=== PATIENT | female | born 1960 | race Caucasian/White ===

== ENCOUNTER → 2016-12-07 | Outpatient (CLI) | payer OTHER, BC ==
[2016-12-07 12:53] LABS: BASO % 0.3 %; BASO ABS # 0.03 K/uL (0-0.2); COMPLETE YES; EOS % 0.6 %; HEMATOCRIT 37.5 % (37-47); IG% 0.1 %; LYMPH % 19.5 %; MEAN CELL VOLUME 86.8 fL (80-100); MEAN CORPUSCULAR HEMOGLOBIN 28.2 pg (25-34); MEAN CORPUSCULAR HGB CONC 32.5 g/dl (32-36); MEAN PLATELET VOLUME 9.8 fL (7.4-10.4); MONO % 5.2 %; NEUT % 74.3 %; PLATELET COUNT 296 K/uL (130-400); RED BLOOD COUNT 4.32 M/uL (4.2-5.4); WHITE BLOOD COUNT 11.26 K/uL (4.8-10.8)
[2016-12-07 13:00] LABS: CALCIUM 8.9 mg/dl (8.5-10.1)
[2016-12-07 13:16] LABS: ALB/GLOB RATIO 0.8 (0.9-2); ALKALINE PHOSPHATASE 110 U/L (45-117); ALT/SGPT 33 U/L (12-78); AST/SGOT 19 U/L (15-37); BLOOD UREA NITROGEN 15 mg/dl (7-18); BUN/CREATININE RATIO 13.9 (10-20); CARBON DIOXIDE 27 mmol/L (21-32); CHLORIDE 103 mmol/L (98-107); CHOLESTEROL 213 mg/dl (0-200); CHOLESTEROL/HDL RATIO 3.8; GLUCOSE 84 mg/dl (70-99); HDL CHOLESTEROL 56 mg/dl; LDL CHOLESTEROL CALCULATED 111 mg/dl; POTASSIUM 4.1 mmol/L (3.5-5.1); SODIUM 139 mmol/L (136-145); TRIGLYCERIDES 232 mg/dl (0-150); VERY LOW DENSITY LIPOPROT CALC 46 mg/dl
[2016-12-07 14:06] LABS: LYME DISEASE AB IGM NEG (NEG)
[2016-12-07 14:09] LABS: LYME DISEASE AB IGG NEG (NEG)
== END | disposition home or self-care (01) ==
LOC: C.LABPBG 09:31
PROVIDERS: ATTEND Family Medicine
DX: I10 Essential (primary) hypertension (principal); R53.81 Other malaise; Z86.19 Personal history of other infectious and parasitic diseases

== ENCOUNTER → 2017-05-15 | Outpatient (CLI) | payer BC ==
--- NOTE | 2017-05-15 14:30 | MAMMOGRAPHY REPORT ---
BILATERAL DIGITAL SCREENING MAMMOGRAM TOMOSYNTHESIS WITH CAD: 05/15/2017 CLINICAL HISTORY: Routine screening. Patient has no complaints. TECHNIQUE: Breast tomosynthesis in addition to standard 2D mammography was performed. Current study was also evaluated with a Computer Aided Detection (CAD) system. COMPARISON: Comparison is made to exams dated: 05/11/2016 mammogram, 11/03/2014 mammogram, 03/31/2014 mammogram, 03/18/2014 mammogram, 08/23/2012 mammogram - [facility], and 11/19/2007 mamm ogram. BREAST COMPOSITION: The tissue of both breasts is almost entirely fatty. FINDINGS: There are a few scattered benign rim calcifications in the breasts and stable groupings of very faint punctate microcalcifications anteriorly within both breasts, which are stable dating back to at least 08/16/2011, therefore likely benign. No suspicious mass, architectural distortion or clu ster of new, suspicious microcalcifications is seen. IMPRESSION: ACR BI-RADS CATEGORY 1: NEGATIVE There is no mammographic evidence of malignancy. A 1 year screening mammogram is recommended. The pa tient will receive written notification of the results. Approximately 10% of breast cancers are not detected with mammography. A negative mammographic report should not delay biopsy if a clinically suggestive mass is present. Norma Jarquin M.D. ay/:05/15/2017 10:43:46 Collection Analyst: Katheryn Avalos, [facility] letter sent: Normal 1/2 BI-RADS Code: ACR BI-RADS Category 1: Negative
== END | disposition home or self-care (01) ==
LOC: C.MAMM 10:03
PROVIDERS: ATTEND Obstetrics & Gynecology
DX: Z12.31 Encounter for screening mammogram for malignant neoplasm of breast (principal)

== ENCOUNTER → 2017-10-22 | Outpatient (CLI) | payer BC ==
[2017-10-22 15:31] LABS: ALT/SGPT 34 U/L (12-78); AST/SGOT 18 U/L (15-37)
== END | disposition home or self-care (01) ==
LOC: C.LABPBG 10:42
PROVIDERS: ATTEND Obstetrics & Gynecology Reproductive Endocrinology
DX: N76.0 Acute vaginitis (principal)

== ENCOUNTER → 2018-02-11 | Outpatient (CLI) | payer BC ==
[2018-02-11 14:22] LABS: ALBUMIN 3.5 gm/dl (3.4-5.0); TOTAL PROTEIN 7.8 gm/dl (6.4-8.2)
== END | disposition home or self-care (01) ==
LOC: C.LABPBG 11:05
PROVIDERS: ATTEND Family Medicine
DX: L43.8 Other lichen planus (principal)